=== PATIENT | female | born 1980 | race Caucasian/White ===

== ENCOUNTER 2017-05-08 09:14 | Emergency (ER) | payer OTHER ==
[~2017-05-08] VITALS: Ht 172.7 cm; Wt 81.0 kg
[2017-05-08 09:17] VITALS: Ht 172.7 cm; Wt 81.0 kg
[2017-05-08] MEDS ORDERED: AZIT250T94 PO (09:53)
[2017-05-08] MEDS ORDERED: LORA-777 PO (09:53)
[2017-05-08] MEDS ORDERED: HYDR-906 PO (09:53)
--- NOTE | 2017-05-08 09:55 | ERD ---
ER Documentation Chief Complaint Date/Time DATE: 05/08/17 TIME: 09:54 Chief Complaint pt bib self with c/o left sided ear pain starting yesterday HPI This is a 36-year-old female complains of gradual onset of sharp left ear pain onset yesterday. No fever pain has a sharp radiating pain that radiates down behind the ear. No loss of hearing no fever no sore throat headache no mastoid pain ROS All systems reviewed and are negative except as per history of present illness. Medications Home Meds Active Scripts Hydrocodone/Acetaminophen ([place] 5-325 Tablet) 1 Each Tablet, 1 TAB PO Q6H Y for PAIN, #20 TAB Prov:LEKKOS,LETICIASTOLOS A. DO 05/08/17 Azithromycin* (Zithromax*) 250 Mg Tablet, 250 MG PO .ZPACK DIRECTED, #6 TAB TAKE 500 MG (2 TABS) THE FIRST DAY THEN 250 MG (1 TAB) DAYS 2-5 Prov:LEKKOS,APOSTOLOS A. DO 05/08/17 Loratadine/Pseudoephedrine (CLARITIN-D 24 HOUR TABLET) 1 Each Tab.er.24h, 1 TAB PO DAILY, #30 TAB Prov:LEKKOS,APOSTOLOS A. DO 05/08/17 Allergies Allergies: Coded Allergies: No Known Allergy (Unverified , 03/07/12) PMhx/Soc History of Surgery: No Anesthesia Reaction: No Hx Neurological Disorder: No Hx Respiratory Disorders: No Hx Cardiac Disorders: No Hx Psychiatric Problems: No Hx Miscellaneous Medical Probl: No Hx Alcohol Use: Yes (OCCASSIONALLY) Hx Substance Use: No Hx Tobacco Use: No FmHx Family History: No coronary disease Physical Exam Vitals Vital Signs Date Time Temp Pulse Resp B/P Pulse Ox O2 Delivery O2 Flow Rate FiO2 05/08/17 09:17 98.3 78 16 132/70 98 Physical Exam Const: Well-developed, well-nourished Head: Atraumatic, normocephalic Eyes: Normal Conjunctiva, PERRLA, EOMI, normal sclera, no nystagmus ENT: Normal External Ears, Nose and Mouth, moist mucus membranes, left ear with serous fluid behind the TM with no erythema there is a bulge. Neck: Full range of motion. No meningismus, no lymphadenopathy. Resp: Clear to auscultation bilaterally, no wheezing, rhonchi, rales Cardio: Regular rate and rhythm, no murmurs, S1 S2 present Abd: Soft, non tender x 4, non distended. Normal bowel sounds, no guarding or rebound, no pulsitile abdominal masses or bruits Skin: No petechiae or rashes, no ecchymosis , no maculopapular rash Back: No midline or flank tenderness Ext: No cyanosis, or edema, FROM x 4, normal inspection, neurovascularly intact x 4 Neur: Awake and alert, STR 5/5 x 4, sensation intact x 4, no focal findings, cerebellum intact Psych: Normal Mood and Affect Departure Diagnosis: Primary Impression: Acute serous otitis media of left ear Recurrence: not specified as recurrent Qualified Code: H65.02 - Acute serous otitis media of left ear, recurrence not specified Condition: Stable Patient Instructions: Otitis Media, Abx Tx (Adult) ENMANUEL NEVAREZ DO May 08, 2017 09:55
== END 2017-05-08 10:24 | disposition home or self-care (01) ==
LOC: FTE 09:14
DX: H65.02 Acute serous otitis media, left ear (principal)
CPT/HCPCS: 99284

== ENCOUNTER 2017-07-27 09:04 | Emergency (ER) | payer OTHER ==
[~2017-07-27] VITALS: Wt 91.0 kg
[~2017-07-27 09:04] MED LIST: AZIT250T94 PO; HYDR-906 PO; LORA-777 PO
[2017-07-27] MEDS ORDERED: IBUPROFEN 800 MG TAB PO ONE (10:00)
--- NOTE | 2017-07-27 10:17 | ERD ---
ER Documentation Chief Complaint Chief Complaint LEFT KNEE AFTER INJURY AT WORK HPI This is a 36-year-old female who presents the emergency department today complaining of left knee pain and swelling and pain with bending her knee after carrying heavy items a couple of days ago while at work. Patient states that she works for the [employer] and was carrying heavy bags. States she walks 15 miles a day denies any specific trauma, fevers or chills. ROS All systems reviewed and are negative except as per history of present illness. Medications Home Meds Active Scripts Acetaminophen* (Tylophen*) 500 Mg Capsule, 1 CAP PO Q6H Y for PAIN AND OR ELEVATED TEMP, #30 CAP Prov:LORI PÉREZ PA-C 07/27/17 Naproxen* (Naprosyn*) 500 Mg Tablet, 500 MG PO BID Y for PAIN AND/OR INFLAMMATION, #30 TAB Prov:LORI PÉREZ PA-C 07/27/17 Hydrocodone/Acetaminophen ([place] 5-325 Tablet) 1 Each Tablet, 1 TAB PO Q6H Y for PAIN, #20 TAB Prov:ENMANUEL NEVAREZ DO 05/08/17 Azithromycin* (Zithromax*) 250 Mg Tablet, 250 MG PO .ZPACK DIRECTED, #6 TAB TAKE 500 MG (2 TABS) THE FIRST DAY THEN 250 MG (1 TAB) DAYS 2-5 Prov:ENMANUEL NEVAREZ DO 05/08/17 Loratadine/Pseudoephedrine (CLARITIN-D 24 HOUR TABLET) 1 Each Tab.er.24h, 1 TAB PO DAILY, #30 TAB Prov:ENMANUEL NEVAREZ DO 05/08/17 Allergies Allergies: Coded Allergies: No Known Allergy (Unverified , 03/07/12) PMhx/Soc History of Surgery: No Anesthesia Reaction: No Hx Neurological Disorder: No Hx Respiratory Disorders: No Hx Cardiac Disorders: No Hx Psychiatric Problems: No Hx Miscellaneous Medical Probl: No Hx Alcohol Use: Yes (OCCASSIONALLY) Hx Substance Use: No Hx Tobacco Use: No Smoking Status: Never smoker Physical Exam Vitals Vital Signs Date Time Temp Pulse Resp B/P Pulse Ox O2 Delivery O2 Flow Rate FiO2 07/27/17 09:05 98.0 82 18 131/71 99 Physical Exam Const: NAD Head: Atraumatic Eyes: Normal Conjunctiva ENT: Normal External Ears, Nose and Mouth. Neck: Full range of motion..~ No meningismus. Resp: Clear to auscultation bilaterally Cardio: Regular rate and rhythm, no murmurs Abd: Soft, non tender, non distended. Normal bowel sounds Skin: No petechiae or rashes MSK: left Knee with no obvious deformity. Effusion. Tenderness palpation along medial border of patella. Full active range of motion with pain. Pulses 2+. Distal neurovascularly intact. Neur: Awake and alert Psych: Normal Mood and Affect Results 24 hrs Current Medications Medications (Trade) Dose Ordered Sig/Ham Route PRN Reason Start Time Stop Time Status Last Admin Dose Admin Ibuprofen (Motrin) 800 mg ONCE ONCE PO 07/27/17 10:00 07/27/17 10:01 DC 07/27/17 10:04 DIAGNOSTIC IMAGING REPORT Patient: SCOTT GODOY : 1980 Age: 36 Sex: F MR #: [id number] DOS: 07/27/17 0000 Ordering MD: LORI PÉREZ PA-C Location: [facility] Room/Bed: PROCEDURE: XR Knee. CLINICAL INDICATION: Swelling medial to the patella. TECHNIQUE: Three views of the left knee are available for review. COMPARISON: None available FINDINGS: The medial and lateral femorotibial compartments are preserved, as is the patellofemoral compartment. There is no acute osseous abnormality, marginal erosion or evidence of fracture. A joint effusion is not seen. Mild prepatellar soft tissue swelling. IMPRESSION: 1. Mild prepatellar soft tissue swelling. 2. No acute fracture or dislocation is seen. RPTAT: UU .Kyle Lewis MD, MD Date Time Electronically viewed and signed by .Kyle Lewis MD, MD on 07/27/2017 10:39 .d/ CC: LORI PÉREZ PA-C Procedures/MDM This is a 36-year-old female presents the emergency department today complaining of left knee pain and swelling after carrying heavy items while at work 2 days ago. Patient had tenderness along the medial border of her patella and she did have a mild effusion and therefore did obtain images. Per the radiology report is of the left knee show no acute fracture dislocation. There is mild prepatellar soft tissue swelling. A joint effusion is not seen. Symptoms at this time is consistent with strain versus sprain versus overuse tendinitis. Low suspicion for acute fracture or dislocation. She was given ibuprofen here in the emergency department. She will be given a prescription for Naprosyn and Tylenol for home. Also give the patient an Neeraj wrap. Patient declined a knee immobilizer or crutches to help ambulate. At this time the patient is stable for discharge and outpatient management. Patient should follow up with their PCP in the next 1-2 days. They may return to the emergency department sooner for any persistent or worsening of symptoms. Patient understood and agreed with the plan. Departure Diagnosis: Primary Impression: Knee injury Encounter type: initial encounter Laterality: left Qualified Code: S89.92XA - Injury of left knee, initial encounter Condition: Fair LORI PÉREZ PA-C Jul 27, 2017 10:17
--- NOTE | 2017-07-27 10:39 | RADRPT ---
PROCEDURE: XR Knee. CLINICAL INDICATION: Swelling medial to the patella. TECHNIQUE: Three views of the left knee are available for review. COMPARISON: None available FINDINGS: The medial and lateral femorotibial compartments are preserved, as is the patellofemoral compartment . There is no acute osseous abnormality, marginal erosion or evidence of fracture. A joint effusion is not seen. Mild prepatellar soft tissue swelling. IMPRESSION: 1. Mild prepatellar soft tissue swelling. 2. No acute fracture or dislocation is seen. RPTAT: UU .Kyle Lewis MD, Date Time Electronically viewed and signed by .Kyle Lewis MD, on 07/27/2017 10:39 .d/
[2017-07-27] MEDS ORDERED: ACET500C5 PO (10:43)
[2017-07-27] MEDS ORDERED: NAPR-260 PO (10:43)
== END 2017-07-27 11:10 | disposition home or self-care (01) ==
LOC: FTE 09:04
DX: S89.92XA Unspecified injury of left lower leg, initial encounter (principal); X58.XXXA Exposure to other specified factors, initial encounter; Y92.89 Other specified places as the place of occurrence of the external cause
CPT/HCPCS: 73562; Z7502; Z7610